=== PATIENT | male | born 1990 | race Caucasian/White ===

== ENCOUNTER 2022-10-27 12:54 | Observation (INO) | payer BC ==
[~2022-10-27] VITALS: Ht 195.6 cm; Wt 145.9 kg
[~2022-10-27 12:54] MED LIST: AGM875T PO
--- NOTE | 2022-10-27 13:18 | ED Abdominal Pain ---
General Chief Complaint: Abdominal/GI Problems Stated Complaint: ABD PAIN | POSSIBLE APPENDIX History of Present Illness Date Seen by Provider: October 27, 2022 Time Seen by Provider: 13:00 Initial Comments Patient is a 32-year-old male who presents to the emergency room with a chief complaint of abdominal pain over the last 3 days. Patient saw his primary care physician and had an outpatient CT scan abdomen and pelvis with IV and oral contrast at the hospital in [place] about an hour to an hour and a half ago. Findings were apparently concerning for possible ruptured appendicitis. Patient states he has had a fever in the last 3 days up to 102. He had 1 episode of vomiting yesterday. He states movement makes his pain worse. Remaining still improves it. Currently a "5 or 6". No problems with urination, dysuria urgency or frequency. No reported hematuria. Normal bowel movements. Had oral contrast an hour ago with a sip of water. No other food or fluids this morning. He had a hernia repair as a tiny infant otherwise no abdominal surgeries. He reports to me that he has known stones in his gallbladder, kidneys and bladder. He has not had any pain medication today. Mildly nauseous currently. Timing/Duration: 2-3 Days Severity/Quality: Moderate, Aching Location: RLQ Radiation: No Radiation Associated Symptoms: Nausea/Vomiting Allergies and Home Medications Allergies Coded Allergies: Penicillins (Verified Adverse Reaction, NAUSEA, 03/20/12) Patient Home Medication List Home Medication List Reviewed: Yes Amoxicillin/Clavulanate K (Augmentin 875-125 Tablet) 1 Tab Tablet, 1 TAB PO BID Prescribed by: BUTCH WEINBERG on 03/20/12 1221 Review of Systems Review of Systems Constitutional: see HPI, fever EENTM: No Symptoms Reported Respiratory: No Symptoms Reported Gastrointestinal: Abdominal Pain, Nausea, Vomiting Genitourinary: No Symptoms Reported Musculoskeletal: no symptoms reported Skin: no symptoms reported Psychiatric/Neurological: No Symptoms Reported Physical Exam Vital Signs Capillary Refill : Height/Weight/BMI Height: '" Weight: lbs. oz. kg; BMI Method:Stated General Appearance: WD/WN, no apparent distress, obese HEENT: PERRL/EOMI Neck: normal inspection Respiratory: lungs clear, normal breath sounds, no respiratory distress, no accessory muscle use Cardiovascular: regular rate, rhythm Gastrointestinal: soft, abnormal bowel sounds (quiet), rebound (minimal), tenderness Extremities: normal range of motion, normal inspection Neurologic/Psychiatric: alert, normal mood/affect, oriented x 3 Skin: normal color, warm/dry Progress/Results/Core Measures Results/Orders Lab Results Laboratory Tests Test 10/27/22 13:31 Range/Units My Orders Orders - KIMI MONTES DE OCA MD Outside Films For Comparison (10/27/22 ) Ed Iv/Invasive Line Start (10/27/22 13:30) Cbc With Automated Diff (10/27/22 13:30) Basic Metabolic Panel (10/27/22 13:30) Ondansetron Injection (Zofran Injectio (10/27/22 13:30) Ns Iv 1000 Ml (Sodium Chloride 0.9%) (10/27/22 13:30) Progress Progress Note : Time: 13:42 Progress Note Patient seen and examined by me. Evaluation today includes physical exam, review of outside CT scan from [facility] in [place]. Exam is pertinent for obese male in no acute distress, abdomen is soft, tenderness in the right lower quadrant at McBurney's point. Mild rebound. Quiet hypoactive bowel sounds. Nondistended. Exam is otherwise unremarkable. CT scan was reviewed by Dr. Becerra our radiologist who concurs with the presumptive read of perforated acute appendicitis. I was able to talk to [facility] radiology and have them fax the report to us. Case was discussed with Dr. ALDRICH, general surgery on-call. Admit IV fluids nausea, pain meds Cipro and Flagyl as the patient is penicillin allergic. Patient is treated in the emergency department with Zofran, fluids and fentanyl. I have communicated plan of care to the patient and his . All questions are sought and answered. Diagnostic Imaging Diagonstic Imaging: CT Comments Outside CT scan of the abdomen and pelvis with IV and oral contrast, read by radiology indicates findings consistent with acute appendicitis with pneumoperitoneum possible early developing abscess Departure Communication (Admissions) Time/Spoke to Admitting Phy: 13:[address] Aldrich (surgery) admit Impression Primary Impression: Acute perforated appendicitis Disposition: ADMITTED INPATIENT Condition: Stable Admissions Decision to Admit Reason: Admit from ER (General) Decision to Admit/Date: October 27, 2022 Time/Decision to Admit Time: 13:41 Departure-Patient Inst. Referrals: MALISSA PUGA MD (PCP/Family) Primary Care Physician KIMI MONTES DE OCA MD October 27, 2022 13:18
[2022-10-27] MEDS ORDERED: NS IV 1000 ML 1,000 ML IV STA (13:30)
[2022-10-27] MEDS ORDERED: ONDANSETRON 4 MG/2 ML (SDV) Z0FRAN IVP ONE (13:30)
[2022-10-27 13:37] LABS: BASOPHILS % (AUTO) 0 % (0-10); EOSINOPHILS # (AUTO) 0.1 10^3/uL (0.0-0.3); EOSINOPHILS % (AUTO) 0 % (0-10); HEMATOCRIT 48 % (40-54); HEMOGLOBIN 17.3 g/dL (13.3-17.7); LYMPHOCYTES # (AUTO) 2.5 10^3/uL (1.0-4.0); LYMPHOCYTES % (AUTO) 15 % (12-44); MEAN CORPUSCULAR HEMOGLOBIN 32 pg (25-34); MEAN CORPUSCULAR HGB CONC 36 g/dL (32-36); MEAN CORPUSCULAR VOLUME 88 fL (80-99); MEAN PLATELET VOLUME 10.3 fL (9.0-12.2); MONOCYTES % (AUTO) 6 % (0-12); NEUTROPHILS # (AUTO) 12.6 10^3/uL (1.8-7.8); NEUTROPHILS % (AUTO) 78 % (42-75); PLATELET COUNT 252 10^3/uL (130-400); WHITE BLOOD COUNT 16.2 10^3/uL (4.3-11.0)
[2022-10-27] MEDS ORDERED: CIPROFLOXACIN IV 400MG/200ML 200 ML IV ONE (13:45)
[2022-10-27] MEDS ORDERED: metroNIDAZOLE 500MG/100ML IVPB 100 ML IV ONE (13:45)
[2022-10-27] MEDS ORDERED: fentaNYL INJ 100 MCG/2 ML AMP IVP ONE (13:45)
[2022-10-27 13:51] LABS: POTASSIUM 3.5 MMOL/L (3.6-5.0)
[2022-10-27 13:52] LABS: CALCIUM 9.6 MG/DL (8.5-10.1); LYMPHOCYTES % (MANUAL) 15 %; MONOCYTES % (MANUAL) 5 %; NEUTROPHILS % (MANUAL) 80 %
[2022-10-27 13:53] LABS: PLATELET ESTIMATE ADEQUATE; RBC MORPH NORMAL
[2022-10-27 13:56] LABS: CREATININE SERUM 0.81 MG/DL (0.60-1.30)
--- NOTE | 2022-10-27 14:54 | Progress Note-Pre Operative ---
Pre-Operative Progress Note Date of Available H&P: October 27, 2022 Date H&P Reviewed: October 27, 2022 Time H&P Reviewed: 14:30 History & Physical: No changes noted Pre-Operative Diagnosis: complicated appendicitis KARINE ALAN MD October 27, 2022 14:54
[2022-10-27 15:30] VITALS: BP 130/66
[2022-10-27] MEDS ORDERED: CATHETER FLUSH 10 ML SYR IVP PRN (16:45)
[2022-10-27] MEDS ORDERED: ONDANSETRON 4 MG/2 ML (SDV) Z0FRAN IV PRN (16:45)
[2022-10-27] MEDS: NS IV 1000 ML 1,000 ML IV SCH (17:37)
[2022-10-27] MEDS: fentaNYL INJ 100 MCG/2 ML AMP IV PRN ×2 (17:49→19:16)
--- NOTE | 2022-10-27 18:06 | HISTORY AND PHYSICAL ---
ATTENDING PRIMARY CARE PHYSICIAN: Dr. Can. The patient is a 32-year-old male who presented to the emergency department with a chief complaint of abdominal pain. He reports that the pain started approximately 3 days ago and was more diffuse; however, became more localized towards the right lower abdominal quadrant. He presented to [facility] emergency department where a CT scan was performed, which did show the possibility of a small contained free air, which may indicate a complicated appendicitis. He states that he may have had a fever at home. He did have one episode of emesis as well. He reports that movements make his pain worse. Upon admission, he states that the pain was under control. He does not report any fever, no chills at this time. He does not report any change in urination as well as no change in bowel habits. PAST MEDICAL HISTORY: None. PAST SURGICAL HISTORY: None. ALLERGIES: PENICILLIN. MEDICATIONS: Augmentin 875 mg p.o. b.i.d. SOCIAL HISTORY: Negative smoke, negative alcohol. FAMILY HISTORY: Noncontributory. VITAL SIGNS: Temperature 37.5, blood pressure 130/66, pulse 70, respirations 18, pulse ox 98% on room air. REVIEW OF SYSTEMS: Obese male, currently in no acute distress. He is not experiencing any shortness of breath or difficulty breathing. No chest pain, palpitations, diaphoresis. A 3-day history of abdominal pain, more localized, now towards the right lower abdominal quadrant with associated nausea and one episode of emesis of undigested food. No hematemesis, no coffee-ground emesis. He does not report any change in bowel habits. He may have had a fever at home. No recent inadvertent weight loss. All other review of systems negative. PHYSICAL EXAMINATION: CHEST: Clear. Good breath sounds bilaterally. HEART: Regular. No murmurs. EXTREMITIES: No lower extremity edema. Negative Homans sign. HEENT: No scleral icterus. No cervical lymphadenopathy. ABDOMEN: Soft, nondistended. There is pain in the right lower abdominal quadrant at McBurney's point with voluntary guarding, no rebound. SKIN: Warm, dry. LABORATORY DATA: WBC 16.2, hemoglobin 17.3, hematocrit 48, platelets 252, BUN 9, creatinine 0.81. ASSESSMENT AND PLAN: A 32-year-old male with complicated acute appendicitis. Natural history of this disease process was explained to the patient as well as the risks and benefits of surgery and he is in full understanding of this and would like to proceed with a diagnostic laparoscopy as well as a laparoscopic appendectomy if it can be done safely. If not, we would then proceed with placement of a drain and continue with antibiotics and then once all the inflammation has subsided, give him the choice of proceeding with an interval appendectomy at a later time as an outpatient. Job ID: [id number] DocumentID: [id number] Dictated Date: 10/27/2022 17:32:29 Virtualization Architect Date: 10/27/2022 18:05:00 Dictated By: KARINE ALAN MD
[2022-10-27] MEDS ORDERED: IBUPROFEN 800 MG (MOTRIN) TAB PO PRN (19:45)
[2022-10-27 20:09] VITALS: BP 113/55
[2022-10-27] MEDS: metroNIDAZOLE 500MG/100ML IVPB 100 ML IV SCH (21:23)
[2022-10-27] MEDS: ACETAMINOPHEN 325 MG TABLET PO PRN (21:23)
[2022-10-27 23:21] VITALS: BP 107/52
[2022-10-27] MEDS: KETOROLAC 15 MG/ML VIAL IVP PRN (23:23)
[2022-10-27] MEDS: CIPROFLOXACIN IV 400MG/200ML 200 ML IV SCH (23:24)
[2022-10-28] VITALS (12 sets, daily range): BP systolic 99–134; BP diastolic 49–77
[2022-10-28] MEDS ORDERED: IBUPROFEN 800 MG (MOTRIN) TAB PO SCH
[2022-10-28] MEDS: NS IV 1000 ML 1,000 ML IV SCH ×3 (01:58→16:00)
[2022-10-28] MEDS: metroNIDAZOLE 500MG/100ML IVPB 100 ML IV SCH ×3 (05:04→21:24)
[2022-10-28] MEDS: KETOROLAC 15 MG/ML VIAL IVP PRN ×2 (06:51→17:43)
[2022-10-28] MEDS: fentaNYL INJ 100 MCG/2 ML AMP IV PRN ×4 (09:39→22:12)
[2022-10-28] MEDS: CIPROFLOXACIN IV 400MG/200ML 200 ML IV SCH ×2 (09:39→22:34)
[2022-10-28] MEDS ORDERED: BUP/EPI 0.5% 1:200,000 (SENSORCAINE) 30 ML VIAL ONE (12:22)
[2022-10-28] MEDS ORDERED: ONDANSETRON 4 MG/2 ML (SDV) Z0FRAN ONE ×2 (12:36→15:05)
[2022-10-28] MEDS ORDERED: proPOfol 200 MG/20 ML (DIPRIVAN) VIAL IV ONE ×2 (12:36→13:25)
[2022-10-28] MEDS ORDERED: MIDAZOLAM 2 MG/2 ML (VERSED) VIAL ONE (12:36)
[2022-10-28] MEDS ORDERED: fentaNYL INJ 100 MCG/2 ML AMP ONE ×2 (12:36→14:27)
[2022-10-28] MEDS ORDERED: LIDOCAINE PF 2% 5 ML (XYLOCAINE) VIAL ONE (12:36)
[2022-10-28] MEDS ORDERED: SEVOFLURANE (ULTANE) 15 ML INHAL SOLN ONE ×2 (12:36→14:28)
[2022-10-28] MEDS ORDERED: SUCCINYLCHOLINE INJ 20 MG/1 ML 10 ML VIAL ONE ×2 (12:43→14:19)
[2022-10-28] MEDS ORDERED: ROCURONIUM 50 MG/5 ML (ZEMURON) VIAL IV ONE (13:36)
--- NOTE | 2022-10-28 14:23 | Progress Note-Post Operative ---
Post-Operative Progess Note Surgeon (s)/Chimney Supervisor Brick (s) Surgeon KARINE ALAN MD Chimney Supervisor Brick: berhane pemberton FUNDRAISING DIRECTOR Pre-Operative Diagnosis complicated appendicitis Post-Operative Diagnosis perforated appendicitis Procedure & Operative Findings Date of Procedure 10/28/22 Procedure Performed/Findings laparoscopic appendectomy Anesthesia Type get Estimated Blood Loss Estimated blood loss (mL): minimal Specimens/Packing Specimens Removed appendix KARINE ALAN MD October 28, 2022 14:23
[2022-10-28] MEDS ORDERED: AMOX1TAB12 PO (14:25)
[2022-10-28] MEDS ORDERED: NEOSTIGMINE (BLOXIVERZ ) 1 MG/1ML 10 ML VIAL ONE (14:25)
[2022-10-28] MEDS ORDERED: GLYCOPYRROLATE 0.2 MG/ML (ROBINUL) 2 ML VIAL ONE (14:25)
[2022-10-28] MEDS ORDERED: HYDR-3817 PO (14:25)
--- NOTE | 2022-10-28 14:26 | Discharge Inst-Surgical ---
D/C Lap Instructions-WAQAS New, Converted, or Re-Newed RX: RX on Chart Follow Up Appt in 1 week Activity as tolerated No driving for 24 hours No driving while on pain medications Incentive Spirometry use every 2 hours while awake Regular Diet Symptoms to Report: Fever over 101 degree F, Nausea/Vomiting Infection Signs and Symptoms to report: Increased redness, Foul odor of wound, Increased drainage Bathing instructions: May shower Operative Area Clean/Dry; Keep incision clean/dry If any problems/questions: Contact your physician or go to Emergency Room KARINE ALAN MD October 28, 2022 14:26
[2022-10-28] MEDS ORDERED: morphine INJ 10 MG/ML 1ML (SYR OR VIAL) IVP ONE (14:45)
[2022-10-28] MEDS ORDERED: ONDANSETRON 4 MG/2 ML (SDV) Z0FRAN IVP PRN (14:45)
[2022-10-28] MEDS ORDERED: MEPERIDINE (DEMEROL) INJ 50 MG/ML IVP ONE (14:45)
[2022-10-28] MEDS ORDERED: HYDROmorphone 2 MG/ML VIAL (DILAUDID) IV ONE (14:45)
--- NOTE | 2022-10-28 14:45 | Anesthesia-General Post-Op ---
General Patient Condition Mental Status/LOC: Same as Preop Cardiovascular: Satisfactory Nausea/Vomiting: Absent Respiratory: Satisfactory Pain: Controlled Complications: Absent Post Op Complications Complications None Follow Up Care/Instructions Patient Instructions None needed. Anesthesia/Patient Condition Patient Condition Patient is doing well, no complaints, stable vital signs, no apparent adverse anesthesia problems. No complications reported per nursing. AMRCUS SMART CRNA October 28, 2022 14:45
[2022-10-28] MEDS ORDERED: morphine INJ 10 MG/ML 1ML (SYR OR VIAL) ONE (15:05)
[2022-10-28] MEDS ORDERED: HYDROmorphone 2 MG/ML VIAL (DILAUDID) ONE (15:18)
[2022-10-28] MEDS: HYDROcodone/APAP 7.5 MG/325 MG (LORTAB, LORCET PLUS) TABLET PO PRN ×2 (15:59→20:08)
[2022-10-28] MEDS: ACETAMINOPHEN 325 MG TABLET PO PRN (22:12)
--- NOTE | 2022-10-28 23:06 | OPERATIVE REPORT ---
DATE OF SERVICE: 10/28/2022 ATTENDING PRIMARY CARE PHYSICIAN: Cyn Reyes MD PREOPERATIVE DIAGNOSIS: Complicated appendicitis. POSTOPERATIVE DIAGNOSIS: Contained perforation. PROCEDURE: Laparoscopic appendectomy and drain placement. SURGEON: Randy Aldrich MD JD EDWARDS: Boogie Grissom APRN ANESTHESIA: General endotracheal. ESTIMATED BLOOD LOSS: Minimal. FINDINGS: Contained perforation of the appendix. DISPOSITION: The patient tolerated the procedure well. INDICATIONS: The patient is a 32-year-old male who presented to the Emergency Department with a chief complaint of abdominal pain. He stated that the pain started approximately 3 days ago and was more in the lower abdominal quadrant; however, became more localized towards the right lower abdominal quadrant. He presented to [facility] where a CT scan was performed, which did show small contained free air as well as an inflamed appendix, likely consistent with a complicated appendicitis. He states that he may have had some fevers and chills at home; however, unsure. He did have one episode of emesis as well. Upon admission, he was given IV fluids as well as IV antibiotics and states that his pain was under control and his vital signs remained stable. DESCRIPTION OF PROCEDURE: The patient was brought to the operating room, laid supine on the table. After adequate IV pain and sedative medications and general endotracheal intubation, the abdomen was prepped and draped in a standard surgical fashion. A 0.5% Marcaine with epinephrine was used to anesthetize the overlying skin in the left upper abdominal quadrant and a transverse skin incision made using a #15 blade. An 0 silk suture was applied to the medial aspect of the incision for retraction and a Veress needle inserted with a low opening pressure of 0 mmHg. The abdomen was then insufflated to 15 mmHg pressure. The Veress needle removed and a 5 mm trocar placed followed by a 5 mm 45-degree angle laparoscope to visualize the peritoneal cavity. There was an inflammatory phlegmon that was contained by small bowel mesentery as well as the greater omentum and the lateral peritoneal lining. Under direct visualization, we then proceeded to place a supraumbilical 10 mm port after the skin and peritoneal lining were anesthetized using 0.5% Marcaine with epinephrine and a transverse skin incision made using a #15 blade. In a similar manner, a suprapubic 5 mm port was placed. The patient was then placed in Trendelenburg position as well as plane right side up, left side down. We then proceeded with a gentle meticulous dissection of the small bowel mesentery and omentum identifying the appendix with a contained perforation again noted. We then proceeded with gentle dissection of the appendix and the mesoappendix using blunt dissection. A window was then created between the base of the appendix at the cecum and the mesoappendix using a [place] dissector. The appendix was then stapled and transected at the cecal base using a JUDITH 45 mm stapler with a 2.5 mm thickness load. The mesoappendix was then stapled and transected with the same stapler with a 2.0 mm thickness reload with visualization of good hemostasis. The appendix was removed through the 10 mm port site using an EndoCatch bag. The area as well as the subphrenic space and pelvis were then copiously irrigated and suctioned out. A 19-Slovak Beto-Conner drain was then placed in the area of the previous appendix as well as in the pelvis and brought out the left upper abdominal quadrant 5 mm port site and sutured to the skin using 3-0 nylon suture. The 10 mm port site fascia and peritoneum were then closed under direct visualization using a Mikhail-Joi device and 0 Vicryl suture. The abdomen was desufflated and the remaining ports removed. All skin incisions were closed using 4-0 Monocryl running subcuticular sutures. Wounds were then cleaned and covered with Dermabond. The patient tolerated the procedure well. We will start IV normal pain medication as well as a clear liquid diet. Once he is tolerating clears with good pain control with oral pain medications and ambulating well, we will discharge him home where he will be instructed to do no heavy lifting or exertion for the next 2 weeks. Job ID: [id number] DocumentID: [id number] Dictated Date: 10/28/2022 14:33:42 Vulnerability Researcher Date: 10/28/2022 23:04:00 Dictated By: RANDY ALDRICH MD
[2022-10-29] MEDS: KETOROLAC 15 MG/ML VIAL IVP PRN ×2 (00:28→07:58)
[2022-10-29 00:30] VITALS: BP 118/62
[2022-10-29] MEDS: NS IV 1000 ML 1,000 ML IV SCH (00:34)
[2022-10-29 04:15] VITALS: BP 108/67
[2022-10-29] MEDS: metroNIDAZOLE 500MG/100ML IVPB 100 ML IV SCH (05:44)
[2022-10-29] MEDS: ACETAMINOPHEN 325 MG TABLET PO PRN (05:52)
[2022-10-29] MEDS: fentaNYL INJ 100 MCG/2 ML AMP IV PRN (05:52)
[2022-10-29] MEDS: HYDROcodone/APAP 7.5 MG/325 MG (LORTAB, LORCET PLUS) TABLET PO PRN (07:58)
[2022-10-29 08:00] VITALS: BP 97/58
[2022-10-29 09:26] VITALS: BP 97/58
== END 2022-10-29 09:26 | disposition home or self-care (01) ==
LOC: EDUNIT# 12:54 → ER 12:58 → 4TH 13:00 → UNDOADMOB 15:11 → 4TH 15:11 → UNDODISOB 10-29 09:26
PROVIDERS: ADMIT Surgery; ATTEND Surgery
DX: K35.32 Acute appendicitis with perforation, localized peritonitis, and gangrene, without abscess (principal); E66.01 Morbid (severe) obesity due to excess calories; F17.290 Nicotine dependence, other tobacco product, uncomplicated; Z68.38 Body mass index [BMI] 38.0-38.9, adult
CPT/HCPCS: 36415; 80048; 85007; 85027; 96361; 96365; 96367; 96368; 96375; 96376; G0378